=== PATIENT | female | born 1990 | race African-American/Black ===

== ENCOUNTER 2019-01-27 01:20 | Emergency (ER) | payer BC, MEDICAID ==
[2019-01-27 02:40] LABS: ABSOLUTE BASOPHILS # (AUTO) 0.1 10^3/uL (0.0-0.2); ABSOLUTE MONOCYTES (AUTO) 0.4 10^3/uL (0.1-1.4); ABSOLUTE NEUT (AUTO) 2.3 10^3/uL (1.7-8.2); BASOPHILS % (AUTO) 1.2 % (0-2); EOSINOPHILS % (AUTO) 0.7 % (0-6); HEMATOCRIT 43.2 % (36.0-47.0); HEMOGLOBIN 14.6 g/dL (12.0-15.5); LYMPHOCYTES % (AUTO) 41.7 % (13-45); MEAN CORPUSCULAR HEMOGLOBIN 29.5 pg (27.0-33.4); MEAN CORPUSCULAR HGB CONC 33.9 g/dL (32.0-36.0); MEAN CORPUSCULAR VOLUME 87 fl (80-97); MONOCYTES % (AUTO) 7.5 % (3-13); PLATELET COUNT 203 10^3/uL (150-450); RED BLOOD COUNT 4.96 10^6/uL (3.72-5.28); RED CELL DISTRIBUTION WIDTH 14.2 % (11.5-14.0); SEGMENTED NEUTROPHILS % (AUTO) 48.9 % (42-78); TOTAL CELLS COUNTED % (AUTO) 100 %; WHITE BLOOD COUNT 4.8 10^3/uL (4.0-10.5)
[2019-01-27 02:49] LABS: APPEARANCE,URINE CLEAR; BILIRUBIN,URINE NEGATIVE (NEGATIVE); COLOR,URINE YELLOW; GLUCOSE, URINE NEGATIVE (NEGATIVE); KETONES,URINE NEGATIVE (NEGATIVE); LEUKOCYTE ESTERASE,URINE NEGATIVE (NEGATIVE); NITRITE,URINE NEGATIVE (NEGATIVE); PROTEIN,URINE NEGATIVE (NEGATIVE); URINE SPECIFIC GRAVITY 1.011; UROBILINOGEN,URINE NEGATIVE mg/dL (<2.0)
[2019-01-27 02:51] LABS: ALBUMIN 4.4 g/dL (3.5-5.0); ALKALINE PHOSPHATASE 76 U/L (38-126); ANION GAP 12 (5-19); ASPARTATE AMINO TRANSFERASE 25 U/L (14-36); BILIRUBIN,DIRECT 0.1 mg/dL (0.0-0.4); BILIRUBIN,TOTAL 0.6 mg/dL (0.2-1.3); BLOOD UREA NITROGEN 9 mg/dL (7-20); CALCIUM 9.8 mg/dL (8.4-10.2); CARBON DIOXIDE 26 mmol/L (22-30); CHLORIDE 100 mmol/L (98-107); GLUCOSE 97 mg/dL (75-110); TOTAL PROTEIN 7.8 g/dL (6.3-8.2)
--- NOTE | 2019-01-27 04:40 | ER Document Report ---
ED General - General Chief Complaint: Abdominal Pain Stated Complaint: ABDOMINAL AND BACK PAIN,THROAT PAIN,ACID REFLUX Time Seen by Provider: 01/27/19 04:37 TRAVEL OUTSIDE OF THE [place] IN LAST 30 DAYS: No - HPI Notes: 32bf history of PCOS in the past prescribed metformin but has not been taking says she has lactose intolerance and some chronic constipation and abdominal pain but this is severe and has been in the last few days but since she was at work today seems more severe she denies any nausea vomiting. She denies any symptoms sniffing and changes in her bowel movements or difficulty with having the bowel movements. She denies any vaginal discharge or pain with any intercourse. In fact she says her fianc has been gone for a number of months since she has not had any intercourse. She says the pain is gripping tight and seems all through her lower front pelvic region. She says though today there were times when she felt like it was a burning sensation even up through the upper abdomen. She denies any passing out near passing out, fever chills sweats, other radiation of the pain. She denies any changes in her urination no vaginal bleeding. Her last menstrual. Was months ago but she says that is regular for her given her history of irregular periods. She tried an antacid and Tylenol earlier but that did not seem to help at all. He does not seem to be related to p.o. intake and she is not had any reduction in her p.o. intake. - Related Data Allergies/Adverse Reactions: No Known Allergies Allergy (Verified 05/06/14 10:01) Past Medical History - General Information source: Patient - Social History Smoking Status: Never Smoker Frequency of alcohol use: None Drug Abuse: None Family History: Reviewed & Not Pertinent Patient has suicidal ideation: No Patient has homicidal ideation: No Past Surgical History: Reports: Hx Section - Immunizations Hx Diphtheria, Pertussis, Tetanus Vaccination: - unk Review of Systems - Review of Systems Constitutional: No symptoms reported EENT: No symptoms reported Cardiovascular: No symptoms reported Respiratory: No symptoms reported Gastrointestinal: No symptoms reported Genitourinary: No symptoms reported Female Genitourinary: No symptoms reported Musculoskeletal: No symptoms reported Skin: No symptoms reported Hematologic/Lymphatic: No symptoms reported Neurological/Psychological: No symptoms reported Physical Exam - Vital signs Vitals: Temp Pulse Resp BP Pulse Ox 98 F 71 16 133/100 H 100 01/27/19 01:29 01/27/19 01:29 01/27/19 01:29 01/27/19 01:29 01/27/19 01:29 Interpretation: Normal - General General appearance: Appears well In distress: None - HEENT Head: Normocephalic, Atraumatic Eyes: No: Pale conjunctiva, Scleral icterus Extraocular movements intact: Yes Nerve palsy: No Sinus: Normal Nasal: Normal Mouth/Lips: Normal. No: Lesions Mucous membranes: Dry Pharynx: No: Erythema, Exudate, Tonsillar hypertrophy, Uvular edema Neck: Supple. No: Lymphadenopathy, Neck mass, Thyroid nodule, Thyromegally - Respiratory Respiratory status: No respiratory distress. No: Tachypnea Chest status: No: Tender Breath sounds: No: Decreased air movement, Nonproductive cough, Rales, Rhonchi, Stridor, Wheezing Chest palpation: No: Tender, Ecchymosis - Cardiovascular Rhythm: Regular Heart sounds: S1 appreciated, S2 appreciated Murmur: No Pulses: Normal: Radial Normal capillary refill: Yes - Abdominal Inspection: Normal Distension: No distension. No: Distended bladder Bowel sounds: Normal Tenderness: Nontender. No: McBurney's point, Schulte's sign, Guarding, Rebound Organomegaly: No organomegaly - Genitourinary External exam: No: Lesions, Laceration, Bruising Speculum exam: Cervix closed, Vaginal discharge - Copious thick semisolid white discharge no friability of the cervical or vaginal mucosa. No peritoneal signs on bimanual exam but does have some tenderness on palpation of the cervix and adnexa. 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 No: Involuntary movements, Weakness Sensory: Normal - Grossly intact x4 extremities - Psychological Associated symptoms: Normal affect, Normal mood. No: Angry, Anxious, Confused, Flat affect - Skin Skin Temperature: Warm Skin irregularity: negative: Erythema, Lesion, Rash Course - Vital Signs Vital signs: Temp Pulse Resp BP Pulse Ox 98 F 71 16 133/100 H 100 01/27/19 01:29 01/27/19 01:29 01/27/19 01:29 01/27/19 01:29 01/27/19 01:29 - Laboratory Result Diagrams: 01/27/19 02:28 01/27/19 02:28 Laboratory results interpreted by me: 01/27/19 01/27/19 02:28 02:28 RDW 14.2 H Urine Ascorbic Acid 40 H 01/27/19 06:54 Reviewed labs urinalysis within normal limits negative urine test. Wet mount is consistent with likely bacterial vaginitis which is consistent with my pelvic exam. GC chlamydia negative trichomoniasis negative on wet mount. - EKG Interpretation by Me Additional EKG results interpreted by me: 01/27/19 04:40 EKG reviewed from 1:56 AM is normal sinus rhythm rate 57, intervals within normal limits no ST elevations depressions axis and voltage within normal limits no signs of hypertrophy or strain. Discharge - Discharge Clinical Impression: Bacterial vaginitis Abdominal pain Qualifiers: Abdominal location: unspecified location Qualified Code(s): R10.9 - Unspecified abdominal pain Condition: Good Disposition: HOME, SELF-CARE Additional Instructions: We sent some samples from your vaginal swabs which showed you do have evidence of bacterial vaginosis. Again it does not necessarily have to be associated with sexual transmission. Avoid any soaps or other irritants, commonly very perfumed bath soaps can bother women. He can use either 650 of Tylenol or 600 mg of ibuprofen every 6 hours as needed for pain. Please take the Flagyl which is an antibiotic twice a day for 7 days and complete the entire course, but ensure you do not drink alcohol around the time of taking this medicine because it may can make you feel nauseated. Return if you have any severe abdominal pain fevers chills sweats vomiting or other concerns. Otherwise I would like you to see your women's health provider regarding your diagnosis of PCOS and irregular periods. Sometimes management of these 2 issues can help with lower abdominal pain. Prescriptions: Metronidazole [Flagyl 500 mg Tablet] 500 mg PO BID 7 Days #14 tablet
[2019-01-27 06:03] LABS: BACTERIA (WET MOUNT) 3+ BACTERIA SEEN; EPITHELIALS (WET MOUNT) 3+ EPITHELIALS SEEN; RBCS (WET MOUNT) RARE RBCS SEEN; T.VAGINALIS (WET MOUNT) NO TRICHOMONAS SEEN; WBCS (WET MOUNT) 2+ WBCS SEEN; YEAST (WET MOUNT) NO YEAST SEEN
[2019-01-27 06:50] VITALS: BP 129/84
[2019-01-27 07:36] LABS: CHLAM PCR NOT DETECTED (NOT DETECT)
--- NOTE | 2019-01-28 12:16 | EKG REPORT ---
SEVERITY:- NORMAL ECG - SINUS RHYTHM : Confirmed by: Eugenio Humphrey 28-Jan-2019 12:15:02
== END 2019-01-27 06:49 | disposition home or self-care (01) ==
LOC: ER 01:20
DX: N76.0 Acute vaginitis (principal); B96.89 Other specified bacterial agents as the cause of diseases classified elsewhere; R10.9 Unspecified abdominal pain; M54.9 Dorsalgia, unspecified; R07.0 Pain in throat; K21.9 Gastro-esophageal reflux disease without esophagitis; K59.09 Other constipation; R10.2 Pelvic and perineal pain
CPT/HCPCS: 36415; 80053; 81001; 81025; 83690; 85025; 87210; 87491; 87591; 93005; 93010; 99285